=== PATIENT | female | born 1980 | race Caucasian/White ===

== ENCOUNTER 2017-06-14 09:55 | Emergency (ER) | payer OTHER ==
[~2017-06-14] VITALS: Ht 167.6 cm; Wt 72.7 kg
[2017-06-14] MEDS ORDERED: IBUP-1022 PO (10:03)
--- NOTE | 2017-06-14 11:25 | REP ---
RIGHT ANKLE: Four views right ankle performed. There appears to be an avulsion fracture of the distal fibula. No other fracture or dislocation is seen. There is adjacent lateral soft tissue swelling. The ankle mortise is anatomic. IMPRESSION: Avulsion fracture lateral malleolus with associated soft tissue swelling. Signed by Chico Lemos MD 06/14/2017 07:28 P
[2017-06-14 12:18] VITALS: BP 136/88
[2017-06-14] MEDS ORDERED: NORCOTAB PO (12:25)
== END 2017-06-14 12:36 | disposition home or self-care (01) ==
LOC: M ED 10:25
DX: S82.831A Other fracture of upper and lower end of right fibula, initial encounter for closed fracture (principal); X58.XXXA Exposure to other specified factors, initial encounter; Y92.008 Other place in unspecified non-institutional (private) residence as the place of occurrence of the external cause; Y99.9 Unspecified external cause status; Y93.9 Activity, unspecified

== ENCOUNTER 2018-04-10 16:30 | Emergency (ER) | payer OTHER | END 2018-04-10 17:14 | disposition home or self-care (01) | LOC: M ED 16:30 | DX: S16.1XXA Strain of muscle, fascia and tendon at neck level, initial encounter (principal); M54.12 Radiculopathy, cervical region; V43.52XA Car driver injured in collision with other type car in traffic accident, initial encounter; Y93.9 Activity, unspecified; Y92.9 Unspecified place or not applicable; Y99.9 Unspecified external cause status; Z88.6 Allergy status to analgesic agent | CPT/HCPCS: 99282 ==